=== PATIENT | male | born 1980 | race Two or more races ===

== ENCOUNTER 2019-09-07 10:26 | Emergency (ER) | payer SELFPAY ==
[~2019-09-07] VITALS: Ht 172.7 cm; Wt 68.5 kg
--- NOTE | 2019-09-07 10:48 | NUR ---
ED Nurse Note: Pt walked in from home c/o right knee 10/10 pain with swelling x 3 weeks. Pt denies recent trauma, but said he had a knee injury 20 years ago. Right knee all the way down to ankle/foot 2+ edema noted. Respirations even and unlabored on room air. Vitals stable as documented. Facial grimacing and limping noted.
[2019-09-07 10:58] VITALS: BP 124/80
[2019-09-07] MEDS ORDERED: Acetaminophen 500mg (ES) tab ORAL ONE (11:00)
--- NOTE | 2019-09-07 11:04 | Emergency Room Report ---
History of Present Illness General Chief Complaint: Edema Source: Patient Present Illness HPI 39-year-old male presents with right knee swelling about the right knee, pain with movement relieved with rest severity is moderate, intermittent, he endorses as sharp, started a few days ago, no known traumatic event. Patient presents for evaluation Allergies: Coded Allergies: No Known Allergies (Unverified , 09/07/19) Patient History Past Medical History: see triage record Reviewed Nursing Documentation: PMH: Agreed; PSxH: Agreed Nursing Documentation-PMH Past Medical History: No History, Except For Hx Hypertension: Yes Hx Diabetes: Yes Review of Systems All Other Systems: negative except mentioned in HPI Physical Exam Vital Signs Date Time Temp Pulse Resp B/P (MAP) Pulse Ox O2 Delivery O2 Flow Rate FiO2 09/07/19 10:36 97.9 96 16 124/80 (95) 99 Room Air General Appearance: well appearing, no apparent distress Head: normocephalic, atraumatic ENT: hearing grossly normal, normal voice Neck: full range of motion, supple Respiratory: no respiratory distress, speaking full sentences Musculoskeletal: other - Right knee: Anterior posterior drawer negative valgus varus stress negative, palpable deformity above the right knee concerning for possible quadriceps injury Neurologic: alert, normal gait Psychiatric: mood/affect normal Skin: no rash Medical Decision Making Diagnostic Impression: Primary Impression: Right knee pain Qualified Codes: M25.561 - Pain in right knee ER Course 39-year-old male presents with right knee pain differential diagnosis includes contusion, effusion, bursitis Patient with swelling above the right knee right knee x-ray negative for acute pathology will place patient in a knee immobilizer as well of his crutches patient counseled to follow-up with Ortho Other X-Ray Diagnostic Results Other X-Ray Diagnostic Results : X-Ray ordered: Right knee # of Views/Limited Vs Complete: 2 View Indication: Pain Interpretation: no dislocation, other - Effusion above right knee Impression: Other - Effusion above right knee Electronically Signed by: Tyrell De La Garza MD Last Vital Signs Date Time Temp Pulse Resp B/P (MAP) Pulse Ox O2 Delivery O2 Flow Rate FiO2 09/07/19 10:36 97.9 96 16 124/80 (95) 99 Room Air Disposition: HOME, SELF-CARE Condition: Stable Scripts Ibuprofen* (MOTRIN*) 600 Mg Tablet 600 MG ORAL Q8H PRN for For Pain, #30 TAB 0 Refills Prov: Tyrell De La Garza MD 09/07/19 Referrals: Orthopedic Urgent [facility] Patient Instructions: Knee Effusion, [id number], Knee Immobilizer Additional Instructions: The patient was provided with discharge instructions, notified to follow-up with a primary care doctor and or specialist in the next 24-48 hours, and to return to the ED if they have worsening of their symptoms. Please note that this report is being documented using [employer] technology. This can lead to erroneous entry secondary to incorrect interpretation by the dictating instrument. PLEASE FOLLOW-UP WITH ORTHO LEISATyrell Jung MD Sep 07, 2019 11:04
[2019-09-07] MEDS ORDERED: IBUPROFEN600 MG ORAL (14:32)
[2019-09-07 14:55] VITALS: BP 136/74
--- NOTE | 2019-09-07 14:55 | NUR ---
ER DISCHARGE NOTE: Pt's right knee braced. Cruches fitted to patient and pt educated. Patient is cleared to be discharged per ERMD, pt is aox4, on room air, with stable vital signs as documented. pt was given dc and prescription instructions, pt was able to verbalize understanding, pt id band removed. pt is able to ambulate with steady gait on crutches. pt took all belongings.
--- NOTE | 2019-09-07 17:12 | Diagnostic Imaging Report ---
Indication: Right knee pain Technique: 3 views of the right knee Comparison: None Findings: There is a suprapatellar effusion. There is also prepatellar soft tissue swelling. No acute fractures. No dislocations. Joint spaces are preserved Impression: Joint effusion and soft tissue swelling No acute bony trauma
== END 2019-09-07 14:55 | disposition home or self-care (01) ==
LOC: EMR 10:40
DX: M25.561 Pain in right knee (principal); R22.41 Localized swelling, mass and lump, right lower limb; E11.9 Type 2 diabetes mellitus without complications; I10 Essential (primary) hypertension
CPT/HCPCS: 29505; 99283